=== PATIENT | female | born 1940 | race Caucasian/White ===

== ENCOUNTER 2021-02-15 18:03 | Inpatient (IN) ==
[2021-02-15 18:49] LABS: Basophils # 0.1 10*3/uL (0.0-0.2); Basophils % 0.7 % (0.0-0.8); Eosinophils # 0.1 10*3/uL (0.0-0.87); Eosinophils % 1.7 % (0.00-10.9); Hematocrit 46.2 VOL% (35.7-47.0); Hemoglobin 15.7 GM/DL (12.0-16.0); Immature Granulocytes % 0.5 %; Immature Granulocytes Absolute 0.04 #; Lymphocytes # 2.2 10*3/uL (1.4-4.0); Lymphocytes % 28.7 % (21.3-54.2); Mean Corpuscular Volume 90.2 FL (87-102); Mean Platelet Volume 10.1 FL (9.6-12.0); Monocytes % 9.9 % (1.7-12.7); Neutrophils % 58.5 % (38.7-73.9); Platelet Count 186 T/CUMM (130-400); Red Blood Count 5.12 MC/CUMM (3.8-5.5); Red Cell Distribution Width 12.7 % (9.3-17.3); White Blood Count 7.7 T/CUMM (4-12)
[2021-02-15 19:02] LABS: Calcium 9.2 MG/DL (8.5-10.1); Osmolality,Calculated 290.7 MOS/KG (273-304); Potassium 3.8 MMOL/L (3.5-5.1)
[2021-02-15] MEDS ORDERED: METOPROLOL TARTRATE 5 MG/5 ML VIAL IV STA ×3 (19:09→20:29)
[2021-02-15] MEDS ORDERED: SODIUM CHLORIDE 0.9% 500 ML IV STA (19:10)
[2021-02-15] MEDS ORDERED: DILTIAZEM 50 MG/10 ML VIAL IV STA (19:25)
[2021-02-15 19:37] LABS: Bilirubin,Urine Negative (Negative); Blood, Urine Moderate mg/dL (Negative); Glucose,Urine (UA) Negative (Negative); Ketones,Urine Negative (Negative); Nitrite,Urine Negative (Negative); Protein,Urine 100 MG/DL; RBC,Urine 12 /HPF (0-4); Squamous Epithelial Cell,Urine Occasional /HPF (0-10); Urine Appearance CLEAR (Clear); Urine Color Colorless (Yellow); Urine Specific Gravity 1.004 (1.001-1.035); Urine Urobilinogen < 2.0 EU/DL (<2.0)
[2021-02-15] MEDS ORDERED: DEXTROSE 50% 25 GM/50 ML SYRINGE IV PRN (20:33)
[2021-02-15] MEDS ORDERED: GLUCAGON 1 MG VIAL IM PRN (20:33)
[2021-02-15] MEDS ORDERED: hydrALAZINE 20 MG/1 ML VIAL IV PRN (20:34)
[2021-02-15] MEDS ORDERED: ACETAMINOPHEN 325 MG TABLET PO PRN (20:34)
[2021-02-15] MEDS ORDERED: SIMETHICONE CHEW 125 MG TABLET PO PRN (20:34)
[2021-02-15] MEDS ORDERED: ONDANSETRON 4 MG/2 ML VIAL IV PRN (20:34)
[2021-02-15 21:07] LABS: INR 2.1; PT Patient Result 22.7 SECS (10.5-12.0); Partial Thromboplastin Time 39.6 SECS (23.8-32.1)
[2021-02-15] MEDS: FLECAINIDE 50 MG TABLET PO SCH (21:19)
[2021-02-15] MEDS ORDERED: LORATADINE 10 MG TABLET PO PRN (21:26)
[2021-02-15] MEDS: METOPROLOL TARTRATE 25 MG TABLET PO SCH (22:31)
[2021-02-15] MEDS: WARFARIN 3 MG TABLET PO SCH (22:43)
[2021-02-16 05:47] LABS: Basophils % 0.5 % (0.0-0.8); Eosinophils # 0.2 10*3/uL (0.0-0.87); Eosinophils % 2.1 % (0.00-10.9); Immature Granulocytes % 0.3 %; Immature Granulocytes Absolute 0.02 #; Lymphocytes # 2.6 10*3/uL (1.4-4.0); Lymphocytes % 32.9 % (21.3-54.2); Mean Corpuscular HGB Conc 33.3 GM/DL (32-36); Mean Corpuscular Volume 91.5 FL (87-102); Mean Platelet Volume 10.2 FL (9.6-12.0); Monocytes % 10.9 % (1.7-12.7); Neutrophils % 53.3 % (38.7-73.9); Platelet Count 190 T/CUMM (130-400); Red Blood Count 4.92 MC/CUMM (3.8-5.5); Red Cell Distribution Width 12.9 % (9.3-17.3); White Blood Count 7.9 T/CUMM (4-12)
[2021-02-16 06:21] LABS: Albumin 3.4 G/DL (3.4-5.0); Bilirubin,Total 0.8 MG/DL (0.20-1.00); Calcium 8.8 MG/DL (8.5-10.1); Osmolality,Calculated 285.1 MOS/KG (273-304); Potassium 3.8 MMOL/L (3.5-5.1); Risk Ratio 3.37; Thyroid Stimulating Hormone 3.92 uIU/ml (0.358-3.74); Total Protein 6.7 G/DL (6.4-8.2)
[2021-02-16] MEDS: METOPROLOL TARTRATE 25 MG TABLET PO SCH ×2 (08:16→20:28)
[2021-02-16] MEDS: FLECAINIDE 50 MG TABLET PO SCH ×2 (08:16→20:28)
[2021-02-16] MEDS: CITALOPRAM 20 MG TABLET PO SCH ×2 (08:16→08:29)
[2021-02-16] MEDS: PANTOPRAZOLE 40 MG TABLET PO SCH (08:17)
[2021-02-16] MEDS ORDERED: LOSARTAN 50 MG TABLET PO SCH (09:00)
[2021-02-16] MEDS ORDERED: RIVAROXABAN 20 MG TABLET PO SCH (09:00)
[2021-02-16 10:53] LABS: CKMB % 4.6 %; High Sensitive Troponin I* 37.6 ng/L (0-54)
[2021-02-16 14:11] LABS: CKMB % 4.2 %; High Sensitive Troponin I* 25.9 ng/L (0-54)
[2021-02-16] MEDS: WARFARIN 3 MG TABLET PO SCH (20:30)
[2021-02-17 05:40] LABS: Basophils # 0.1 10*3/uL (0.0-0.2); Basophils % 0.6 % (0.0-0.8); Eosinophils # 0.2 10*3/uL (0.0-0.87); Eosinophils % 2.6 % (0.00-10.9); Hematocrit 47.4 VOL% (35.7-47.0); Hemoglobin 15.8 GM/DL (12.0-16.0); Immature Granulocytes % 0.5 %; Immature Granulocytes Absolute 0.04 #; Lymphocytes # 2.7 10*3/uL (1.4-4.0); Lymphocytes % 35.3 % (21.3-54.2); Mean Corpuscular HGB Conc 33.3 GM/DL (32-36); Mean Platelet Volume 10.1 FL (9.6-12.0); Monocytes % 8.8 % (1.7-12.7); Neutrophils % 52.2 % (38.7-73.9); Platelet Count 194 T/CUMM (130-400); Red Blood Count 5.15 MC/CUMM (3.8-5.5); Red Cell Distribution Width 12.9 % (9.3-17.3); White Blood Count 7.7 T/CUMM (4-12)
[2021-02-17 05:58] LABS: Calcium 8.3 MG/DL (8.5-10.1); Osmolality,Calculated 287.1 MOS/KG (273-304); Potassium 3.8 MMOL/L (3.5-5.1)
[2021-02-17 06:28] LABS: Macrocytosis Slight; Platelet Estimate Normal
[2021-02-17] MEDS: LOSARTAN 25 MG TABLET PO SCH (08:59)
[2021-02-17] MEDS: PANTOPRAZOLE 40 MG TABLET PO SCH (08:59)
[2021-02-17] MEDS: CITALOPRAM 20 MG TABLET PO SCH (09:00)
[2021-02-17] MEDS: METOPROLOL TARTRATE 25 MG TABLET PO SCH ×2 (09:00→21:49)
[2021-02-17] MEDS: FLECAINIDE 100 MG TABLET PO SCH ×2 (09:01→21:49)
[2021-02-17] MEDS ORDERED: WARFARIN 4 MG TABLET PO SCH (21:26)
[2021-02-18 05:38] LABS: Basophils % 0.5 % (0.0-0.8); Eosinophils # 0.2 10*3/uL (0.0-0.87); Eosinophils % 3.1 % (0.00-10.9); Hematocrit 44.4 VOL% (35.7-47.0); Hemoglobin 14.9 GM/DL (12.0-16.0); Immature Granulocytes % 0.3 %; Immature Granulocytes Absolute 0.02 #; Lymphocytes # 2.5 10*3/uL (1.4-4.0); Lymphocytes % 32.9 % (21.3-54.2); Mean Corpuscular HGB Conc 33.6 GM/DL (32-36); Mean Corpuscular Volume 92.1 FL (87-102); Mean Platelet Volume 10.2 FL (9.6-12.0); Monocytes % 10.1 % (1.7-12.7); Neutrophils % 53.1 % (38.7-73.9); Platelet Count 185 T/CUMM (130-400); Red Blood Count 4.82 MC/CUMM (3.8-5.5); Red Cell Distribution Width 12.8 % (9.3-17.3); White Blood Count 7.7 T/CUMM (4-12)
[2021-02-18 05:59] LABS: Calcium 8.3 MG/DL (8.5-10.1); Potassium 3.9 MMOL/L (3.5-5.1)
[2021-02-18 06:45] LABS: INR 2.5; PT Patient Result 26.3 SECS (10.5-12.0)
[2021-02-18] MEDS ORDERED: AMIODARONE INJ 150 MG in DEXTROSE 5% 100 ML IV ONE (07:44)
[2021-02-18] MEDS ORDERED: AMIODARONE INJ 450 MG in DEXTROSE 5% 241 ML IV SCH (08:00)
[2021-02-18] MEDS: PANTOPRAZOLE 40 MG TABLET PO SCH (09:23)
[2021-02-18] MEDS: METOPROLOL TARTRATE 25 MG TABLET PO SCH ×2 (09:23→21:51)
[2021-02-18] MEDS: LOSARTAN 25 MG TABLET PO SCH (09:24)
[2021-02-18] MEDS: CITALOPRAM 20 MG TABLET PO SCH (09:24)
[2021-02-18] MEDS: WARFARIN 3 MG TABLET PO SCH (18:07)
[2021-02-18] MEDS: AMIODARONE INJ 450 MG in DEXTROSE 5% 241 ML IV SCH (18:07)
[2021-02-19 05:33] LABS: Basophils % 0.4 % (0.0-0.8); Eosinophils # 0.2 10*3/uL (0.0-0.87); Eosinophils % 2.1 % (0.00-10.9); Hematocrit 44.9 VOL% (35.7-47.0); Immature Granulocytes % 0.4 %; Immature Granulocytes Absolute 0.04 #; Lymphocytes # 2.6 10*3/uL (1.4-4.0); Lymphocytes % 27.8 % (21.3-54.2); Mean Corpuscular HGB Conc 33.4 GM/DL (32-36); Mean Corpuscular Volume 92.2 FL (87-102); Mean Platelet Volume 10.1 FL (9.6-12.0); Monocytes % 7.5 % (1.7-12.7); Neutrophils % 61.8 % (38.7-73.9); Platelet Count 189 T/CUMM (130-400); Red Blood Count 4.87 MC/CUMM (3.8-5.5); Red Cell Distribution Width 12.9 % (9.3-17.3); White Blood Count 9.5 T/CUMM (4-12)
[2021-02-19 05:52] LABS: Calcium 8.5 MG/DL (8.5-10.1); Osmolality,Calculated 284.3 MOS/KG (273-304); Potassium 4.1 MMOL/L (3.5-5.1)
[2021-02-19] MEDS: LOSARTAN 25 MG TABLET PO SCH (09:50)
[2021-02-19] MEDS: METOPROLOL TARTRATE 25 MG TABLET PO SCH ×2 (09:50→20:19)
[2021-02-19] MEDS: PANTOPRAZOLE 40 MG TABLET PO SCH (09:50)
[2021-02-19] MEDS: CITALOPRAM 20 MG TABLET PO SCH (09:51)
[2021-02-19] MEDS: AMIODARONE 200 MG TABLET PO SCH ×2 (09:51→20:19)
[2021-02-19] MEDS: AMIODARONE INJ 450 MG in DEXTROSE 5% 241 ML IV SCH (11:23)
[2021-02-19] MEDS: WARFARIN 3 MG TABLET PO SCH (17:22)
[2021-02-20 05:35] LABS: Basophils % 0.4 % (0.0-0.8); Eosinophils # 0.2 10*3/uL (0.0-0.87); Eosinophils % 1.6 % (0.00-10.9); Hematocrit 44.3 VOL% (35.7-47.0); Hemoglobin 14.7 GM/DL (12.0-16.0); Immature Granulocytes % 0.5 %; Immature Granulocytes Absolute 0.05 #; Lymphocytes # 2.6 10*3/uL (1.4-4.0); Mean Corpuscular HGB Conc 33.2 GM/DL (32-36); Mean Corpuscular Volume 92.7 FL (87-102); Mean Platelet Volume 10.2 FL (9.6-12.0); Neutrophils % 62.5 % (38.7-73.9); Platelet Count 195 T/CUMM (130-400); Red Blood Count 4.78 MC/CUMM (3.8-5.5); Red Cell Distribution Width 12.9 % (9.3-17.3); White Blood Count 10.2 T/CUMM (4-12)
[2021-02-20 05:59] LABS: Calcium 8.5 MG/DL (8.5-10.1); Osmolality,Calculated 285.1 MOS/KG (273-304); Potassium 3.8 MMOL/L (3.5-5.1)
[2021-02-20] MEDS: PANTOPRAZOLE 40 MG TABLET PO SCH (08:13)
[2021-02-20] MEDS: AMIODARONE 200 MG TABLET PO SCH (08:13)
[2021-02-20] MEDS: LOSARTAN 25 MG TABLET PO SCH (08:15)
[2021-02-20] MEDS: METOPROLOL TARTRATE 25 MG TABLET PO SCH (08:16)
[2021-02-20] MEDS: CITALOPRAM 20 MG TABLET PO SCH (08:17)
[2021-02-20] MEDS ORDERED: METOPROLOL TARTRATE 5 MG/5 ML VIAL IV ONE (09:14)
[2021-02-20 12:17] VITALS: BP 122/73
[2021-02-20] MEDS ORDERED: WARFARIN 4 MG TABLET PO SCH (18:00)
== END 2021-02-20 15:48 | disposition home or self-care (01) | DRG 281 ==
LOC: EDUNIT# → EDBD → N.ED 18:03 → N.TELES 18:03
PROVIDERS: ADMIT Internal Medicine; ATTEND Internal Medicine